=== PATIENT | female | born 1935 | race Caucasian/White ===

== ENCOUNTER 2025-02-17 13:09 | Emergency (ER) | payer MEDICARE, SELFPAY ==
[2025-02-17 13:34] VITALS: PULSE 60; O2SAT 96
[2025-02-17 13:41] VITALS: BP 115/51; PULSE 64; RESP 18; O2SAT 95
--- NOTE | 2025-02-17 14:39 | PD.EDADULT ---
ED General RME/HPI General Chief complaint: General Adult/Misc Complain Stated complaint: PEG TUBE REPLACE Time Seen by Provider: 02/17/25 13:18 Arrival date/time: 02/17/25 13:09 RME / HPI RME / HPI narrative: 89 year old female with history of TIA, hypertension, hyperlipidemia presents to the ED sent by [facility] for PEG tube replacement today. Per medics, ID staff reported the patient was evaluated here 1 month ago for PEG tube displacement and had it replaced with a jha catheter. State no outpatient orders have been placed for replacement. No other associated symptoms or reports noted. Related Data Home Medications ?Medication ?Instructions ?Recorded ?Confirmed clonazepam 1 mg tablet 1 mg PO HS 02/19/23 02/19/23 pantoprazole 40 mg tablet,delayed 40 mg PO BID 02/19/23 02/19/23 release Previous Rx's ?Medication ?Instructions ?Recorded atorvastatin 20 mg tablet 20 mg PO QPM #30 tabs 02/20/23 Allergies Allergy/AdvReac Type Severity Reaction Status Date / Time No Known Allergies Allergy Verified 01/10/24 08:18 Review of Systems Review of Systems Systems Reviewed: All systems reviewed, normal except as documented Past Medical History Past Medical History NEUROLOGIC: Positive Cerebrovascular Accident (x 1 month) and Transient Ischemic Attacks (TIA) CARDIAC: Positive Cardiac Disorders and Hypertension GASTROINTESTINAL: Positive Gastrointestinal Disorders GENITOURINARY: Positive Genitourinary Disorders MUSCULOSKELETAL: Positive Arthritis PSYCHO/SOCIAL: Positive Anxiety Family History FAMILY HISTORY: Negative Family Cardiac Disorders Surgical History SURGICAL: Positive Hysterectomy Social History SMOKING STATUS: Unknown if ever smoked ED Exam Narrative Physical exam: See MDM Course Quality Measures none Vital Signs Vital signs: Vital Signs Pulse Rate 64 02/17/25 13:41 Respiratory Rate 18 02/17/25 13:41 Blood Pressure 115/51 L 02/17/25 13:41 Pulse Oximetry (%) 95 02/17/25 13:41 Oxygen Delivery Method Room Air 02/17/25 13:41 Discharge Plan Plan Patient Disposition: HOME (Self Care) Discharge Disposition comment: Stable for discharge home Patient condition on transfer: Stable Prescriptions/Referrals Prescriptions/Med Rec: No Action clonazepam 1 mg tablet 1 mg PO HS Patient Comments: TAKE 1 TABLET BY MOUTH 2 OR 3 TIMES DAILY NEEDED FOR ANXIETY FOR 30 DAYS pantoprazole 40 mg tablet,delayed release (DR/EC) 40 mg PO BID Patient Comments: TAKE 1 TABLET BY MOUTH TWICE DAILY atorvastatin 20 mg tablet 20 mg PO QPM Qty: 30 3RF Referrals: Arjun Scott MD [Physician, Family Practice] - In 1 week Problem List Clinical Impression: Dementia Patient/Caregiver Discharge Instructions Education Materials: Dementia Caregiver Tips Additional Instructions: I called and spoke with Dr. Scott, we discussed this patient's case and we are in agreement. The placement of a feeding tube as an outpatient procedure. The patient does not need to be admitted to the hospital just to place a feeding tube. This patient has had the Jha catheter in her feeding to ostomy for a month. It is very important that you consult a inventory coordinator, like Dr. Casiano, and arrange for an outpatient feeding tube to be placed. The patient has no medical emergencies and we are discharging her back to your facility. If she has any further medical problems or any worsening whatsoever please return her to the emergency department right away. Otherwise you should follow-up with your primary care doctor in the next several days Print Language: Italian Stand Alone Forms: [facility]ary Award Info., Patient Portal Info Letter MDM Narrative [facility] hospital course: This section includes all my notes and documentations, including HPI, PE, and ED course. Yo Chadwick MD ? HPI: 89 year old female with history of TIA, hypertension, hyperlipidemia presents to the ED sent by [facility] for PEG tube replacement today. Per medics, ID staff reported the patient was evaluated here 1 month ago for PEG tube displacement and had it replaced with a jha catheter. State no outpatient orders have been placed for replacement. No other associated symptoms or reports noted. ? ROS: All negative except as documented in HPI. ? PE: GENERAL APPEARANCE:? Nonverbal, appears to be in no distress VITALS: All vitals were reviewed and the pulse ox is 95% on room air, which is normal according to my interpretation. HEENT: Normocephalic, atraumatic; EOMI; mucous membranes pink, moist; oropharynx clear NECK: Supple LUNGS: CTABL HEART: Regular rate, regular rhythm ABDOMEN: LUQ with jha catheter, non distended; normal BS;? soft, no tenderness, no guarding, no rebound; no masses, no organomegaly, no hernia?? EXTREMITIES:?contracted; no edema NEUROLOGIC: nonverbal, does not follow commands, large left side craniotomy SKIN: warm, dry, normal color; no rashes ? I reviewed EMS and [facility] transfer paperwork. No diagnostics ordered or indicated. 1412: I spoke with charge nurse at the [facility] facility. 1418: I spoke with patients PCP Dr. Scott and reports there was no need for emergent PEG tube replacement. Advised sending the patient back and will arrange for outpatient PEG tube replacement. At this point, diagnoses include: Dementia Recommended outpatient care. ? Based on my best medical judgment, made decision no further evaluation or treatment indicated at this time. Patient understands and agrees to the customized discharge instructions and printed, see below. ? Discharge instructions from Dr. Chadwick: I called and spoke with Dr. Scott, we discussed this patient's case and we are in agreement. The placement of a feeding tube as an outpatient procedure. The patient does not need to be admitted to the hospital just to place a feeding tube. This patient has had the Jha catheter in her feeding to ostomy for a month. It is very important that you consult a inventory coordinator, like Dr. Casiano, and arrange for an outpatient feeding tube to be placed. The patient has no medical emergencies and we are discharging her back to your facility. If she has any further medical problems or any worsening whatsoever please return her to the emergency department right away. Otherwise you should follow-up with your primary care doctor in the next several days Clinical Information Provided by EMS Medical Records Reviewed [facility] [place], EMS and assisted Meds/Rx Considered, not Ordered None Labs/Rad/Tests considered, not Ordered None Chronic Illness/Social Conditions which may negatively complicate care or outcome(s)-explain: assisted/debilitated EKG EKG not done Lab Interpretation Labs: none Imaging Imaging interpretation: none Medication Administration(s) None Diagnosis Most likely dx, and/or detailed dx discussion: Dementia Dispositon Disposition: Nursing/Care
--- NOTE | 2025-02-17 14:43 | PC.CC ---
Addendum entered by Emelina Blank 02/17/25 14:54: 1453-Pt will be picked up by [facility] at 1745. Original Note: 1443-[facility] attempted to arrange transportation for the pt to return to [facility] via [facility]. [facility] stated they will call back in 15 minutes if they are able to provide a gurney transport.
[2025-02-17 15:48] VITALS: BP 113/50; PULSE 67; RESP 18; O2SAT 95
--- NOTE | 2025-02-17 16:30 | PC.NURSE ---
report given to Elham at [facility], all instructions given.
== END 2025-02-17 16:02 | disposition home or self-care (01) ==
LOC: SERX 14:42
PROVIDERS: Emergency Provider Emergency Medicine; PCP Family Medicine
DX: F03.90 Unspecified dementia, unspecified severity, without behavioral disturbance, psychotic disturbance, mood disturbance, and anxiety (principal); Z93.1 Gastrostomy status
CPT/HCPCS: 99281

== ENCOUNTER 2025-03-26 13:00 | Day surgery (SDC) | payer MEDICARE, SELFPAY ==
[2025-03-26 13:52] VITALS: BP 147/72; PULSE 83; RESP 14; TEMP 36.9; O2SAT 98; BMI 15.4
--- NOTE | 2025-03-26 14:40 | SUR.PREOP ---
report to nurse rena. dr watson here for procedure.
--- NOTE | 2025-03-26 19:48 | ESOP_ITS ---
Date of Procedure 03/26/25 Pre Op Diagnosis Malfunctioning PEG tube Post Op Diagnosis Removal of the malfunctioning PEG tube Replacement of the PEG tube NANDO Danish 24 Procedure As above Findings As above Procedure Description The existing PEG tube which was a Roberts catheter the white loop of the Roberts catheter was in the anterior abdominal wall Balloon was deflated And the Roberts catheter was pulled out In his place Danish 24 NANDO gastrostomy tube placed in position and secured in position by inflating the balloon with 10 cc sterile water And the wound was dressed in a sterile manner Drains None Implants Implants comments: None Pathology / specimen None Estimated Blood Loss 0 Surgeon Eduardo Casiano MD Surgical Staff Operation Date: 03/26/25 14:40 <No data on this case meets the specified criteria> Diagnosis Problem List Completed Was Problem List Reviewed/Reconciled?: Yes
== END 2025-03-26 16:25 | disposition home or self-care (01) ==
PROVIDERS: PCP Family Medicine; Referring Provider Specialist; Visit Provider Specialist
PROC: (CPT 43762; principal; 2025-03-26 13:45)
DX: K94.23 Gastrostomy malfunction (principal)
CPT/HCPCS: 43762